=== PATIENT | male | born 1965 | race Caucasian/White ===

== ENCOUNTER 2018-10-23 06:12 | Inpatient (IN) | payer OTHER ==
[~2018-10-23] VITALS: Ht 167.6 cm; Wt 102.6 kg
[2018-10-23] MEDS ORDERED: SODIUM CHLORIDE FLUSH 10ML SYR IVF ONE (06:30)
[2018-10-23] MEDS ORDERED: LABETALOL 5MG/ML, 20ML IVPush PRN (06:30)
[2018-10-23] MEDS ORDERED: OMEP-110 PO (06:46)
--- NOTE | 2018-10-23 06:51 | NUR ---
patient back from CT scan. awaiting result.
--- NOTE | 2018-10-23 06:51 | NUR ---
assessment made. seen by ERP. IV placed. blood drawn.
--- NOTE | 2018-10-23 06:52 | NUR ---
report to THELMA Benítez.
[2018-10-23] MEDS ORDERED: MORPHINE SULFATE 4 MG/ML, 1ML ONE ×3 (06:56→15:04)
[2018-10-23] MEDS ORDERED: ONDANSETRON 2MG/ML, 2ML ONE ×2 (06:56→15:04)
[2018-10-23] MEDS ORDERED: ONDANSETRON 2MG/ML, 2ML IVPush ONE (07:00)
[2018-10-23] MEDS ORDERED: SODIUM CHLORIDE 0.9% 1,000ML IVBOLUS ONE (07:00)
--- NOTE | 2018-10-23 07:06 | NUR ---
REPORT FROM THELMA BRADFORD. PT MOVED TO TRAUMA 4 FOR CLOSE OBSERVATION. PT ON CP MONITORS. A&OX4, NO NERURO DEFECITS OBSERVED AT THIS TIME. RESTING ON GURNEY. SIDERAILS UP X 2. CALL LIGHT IN REACH.
[2018-10-23] MEDS: MORPHINE SULFATE 4 MG/ML, 1ML IVPush PRN ×2 (07:08→11:26)
--- NOTE | 2018-10-23 07:08 | NUR ---
SBAR HAND-OFF REPORT RECEIVED FROM THELMA BRADFORD PATIENT WAS ARRIVING BACK TO HIS ROOM, RM 2, FROM CT SCAN. PHARMACY REQUEST SLIP SENT TO PHARMACY FOR LABETALOL. PATIENT WAS MOVED TO TRAUMA 4 WHILE THIS RN WAS REMOVING OTHER MEDS FROM OMNICELL MACHINE. PATIENT MEDICATED WITH ZOFRAN, MORPHINE AND LABETALOL. CARE OF PATIENT HANDED-OFF TO THELMA BLACKWOOD IN TRAUMA 4.
[2018-10-23 07:13] LABS: BASOPHILS # (AUTO) 0.01 x10^3/uL (0-0.1); BASOPHILS % (AUTO) 0 % (0-1); EOSINOPHILS # (AUTO) 0.03 x10^3/uL (0-0.4); EOSINOPHILS % (AUTO) 0 % (1-7); LYMPHOCYTES # (AUTO) 0.99 x10^3/uL (1-3.4); LYMPHOCYTES % (AUTO) 11 % (22-44); MD NO; MEAN CORPUSCULAR HEMOGLOBIN 34.4 pg (27.5-34.5); MEAN CORPUSCULAR VOLUME 101.2 fL (81-97); MEAN PLATELET VOLUME 8.7 fL (7.4-10.4); MONOCYTES # (AUTO) 0.45 x10^3/uL (0.2-0.8); MONOCYTES % (AUTO) 5 % (2-9); NEUTROPHILS # (AUTO) 7.51 x10^3/uL (1.8-6.8); NEUTROPHILS % (AUTO) 84 % (42-75); PLATELET COUNT 137 x10^3/uL (130-400); RED BLOOD COUNT 5.14 x10^6/uL (4.38-5.82); RED CELL DISTRIBUTION WIDTH 15.8 % (9.4-14.8)
--- NOTE | 2018-10-23 07:14 | NUR ---
DR GUTIERREZ TO BEDSIDE TO UPDATE PT ON POC.
[2018-10-23] MEDS ORDERED: LABETALOL 5MG/ML, 20ML IVPush ONE (07:20)
[2018-10-23 07:27] LABS: ALBUMIN 3.3 g/dL (3.4-5.0); ANION GAP 9 mmol/L (5-15); CALCIUM 8.8 mg/dL (8.5-10.1); CHLORIDE 98 mmol/L (98-107)
[2018-10-23 07:31] LABS: ALANINE AMINOTRANSFERASE 47 U/L (12-78); ALKALINE PHOSPHATASE 218 U/L (45-117); CREATININE 1.01 mg/dL (0.7-1.3); TOTAL PROTEIN 9.2 g/dL (6.4-8.2); TROPONIN I < 0.015 ng/mL (0.000-0.045)
--- NOTE | 2018-10-23 07:36 | NUR ---
DISCUSSED WITH DR GUTIERREZ PTS BP AND ORDER FOR NICARDAPINE GTT WHICH CANNOT BE GIVEN DURING MRI. 2ND ORDER FOR LABETOLOL RECIEVED AND GIVEN. PT TO MRI.
[2018-10-23] MEDS ORDERED: LORazepam 2 MG/ML, 1ML IVPush ONE ×2 (08:00)
--- NOTE | 2018-10-23 09:05 | NUR ---
PT BACK FROM MRI. PT DID NOT TOLERATE TOTAL MRI SCAN R/T FREQEUNT MVMT. NICARDIPINE GTT STARTED AT MRI ON DILAFLO PTS BP REMAINED IN 180'S SYSTOLIC. PT NOW 148/89, NICARDIPINE SWITCHED TO IV PUMP. PT OTHERWISE STABLE, NO NEURO DEFICITS NOTED AT THIS TIME.
--- NOTE | 2018-10-23 09:13 | NUR ---
PER MD GUTIERREZ, TARGET SYSTOLIC BP < 160
--- NOTE | 2018-10-23 09:46 | NUR ---
NICARDIPINE GTT HELD AT THIS TIME. SEE EMAR.
[2018-10-23] MEDS ORDERED: NS + 40MEQ KCL 1,000 ML IV ONE ×2 (10:00→10:59)
[2018-10-23] MEDS ORDERED: LEVETIRACETAM 500 MG in SODIUM CHLORIDE 0.9% 100 ML IV ONE (10:30)
--- NOTE | 2018-10-23 10:33 | NUR ---
PT RESTING ON FAMILY DORIS AT BEDSIDE. VSS AND BP AT GOAL, WILL CONTINUE TO HOLD NICARDIPIE GTT AND MONITOR CLOSELY. NO NEURO DEFECITS NOTED AT THIS TIME.
--- NOTE | 2018-10-23 13:01 | NUR ---
PT RESTING COMFORTABLY COMFORTABLY. NEURO INTACT. ALL CONCERNS ADRESSED.
--- NOTE | 2018-10-23 13:13 | NUR ---
PT HR INTERMITTENTLY RU DOWN TO 40, NOT SUSTAINED AND PT NON SYMPTOMATIC. DR GUTIERREZ AWARE.
[2018-10-23] MEDS ORDERED: DOCUSATE 100 MG CAPSULE PO PRN (14:00)
[2018-10-23] MEDS ORDERED: morphine SULFATE 10 MG/ML, 1ML IVPush PRN (14:00)
[2018-10-23] MEDS ORDERED: ONDANSETRON 4 MG TABLET PO PRN (14:00)
[2018-10-23] MEDS ORDERED: LORazepam 1MG TABLET PO PRN ×3 (14:00)
[2018-10-23] MEDS ORDERED: LORazepam 2 MG/ML, 1ML IV PRN ×4 (14:00)
[2018-10-23] MEDS ORDERED: ACETAMINOPHEN 325 MG TABLET PO PRN (14:00)
[2018-10-23] MEDS ORDERED: POLYETHYLENE GLYCOL 17 GM PACKET PO PRN (14:00)
[2018-10-23] MEDS ORDERED: LABETALOL 5 MG/ML SYRINGE IV PRN (14:00)
[2018-10-23] MEDS ORDERED: INSTRUCTION SEE COMMENTS XX ONE (14:00)
[2018-10-23] MEDS ORDERED: BISACODYL 10 MG SUPP PR PRN (14:00)
--- NOTE | 2018-10-23 14:02 | NUR ---
PER DR GARCIA, DISCONTINUE NICARDIPINE ORDER.
[2018-10-23] MEDS ORDERED: MAGNESIUM SULFATE PMX 2GM/50ML 50 ML IV ONE (14:30)
--- NOTE | 2018-10-23 14:40 | NUR ---
US AT BEDSIDE.
[2018-10-23] MEDS ORDERED: THIAMINE 100MG TABLET ONE (14:51)
[2018-10-23] MEDS ORDERED: MAGNESIUM SULFATE PMX 2GM/50ML 50 ML ONE (14:51)
[2018-10-23] MEDS ORDERED: LISINOPRIL 10 MG TABLET ONE (14:51)
[2018-10-23] MEDS: LISINOPRIL 10 MG TABLET PO SCH ×2 (14:57→21:09)
[2018-10-23] MEDS: ONDANSETRON 2MG/ML, 2ML IVPush PRN (15:08)
--- NOTE | 2018-10-23 15:15 | NUR ---
NEURO REMAINS INTACT AT THSI TIME.
[2018-10-23] MEDS ORDERED: ENALAPRILAT 1.25 MG/ML, 1ML ONE (15:37)
--- NOTE | 2018-10-23 15:38 | NUR ---
All neuro intact. AAOx4.
[2018-10-23] MEDS: ENALAPRILAT 1.25 MG/ML, 2ML IV PRN (15:42)
--- NOTE | 2018-10-23 15:48 | NUR ---
MEDICAL DETAILIST Jp Navarrete (patient's brother) telephone number
[2018-10-23] MEDS ORDERED: CHLORDIAZEPOXIDE 25 MG CAPSULE PO SCH (16:00)
--- NOTE | 2018-10-23 16:53 | NUR ---
REPORT TO JANES RENEE.
[2018-10-23] MEDS ORDERED: THIAMINE 200 MG in DEXTROSE 5% 50 ML IVPB ONE (17:30)
[2018-10-23 17:49] VITALS: BP 150/83
[2018-10-23] MEDS ORDERED: THIAMINE 100MG TABLET PO ONE (18:00)
[2018-10-23] MEDS ORDERED: CHLORDIAZEPOXIDE 25 MG CAPSULE PO ONE (18:30)
[2018-10-23] MEDS: MVI ADULT 10 ML, FOLIC ACID 1 MG in D5%-0.9% NACL 1,000 ML IV SCH (20:23)
[2018-10-23] MEDS: CHLORDIAZEPOXIDE 25 MG CAPSULE PO SCH (21:08)
[2018-10-23] MEDS: ATORVASTATIN 40 MG TABLET PO SCH (21:08)
[2018-10-23] MEDS: OXYcodone IR 5MG TABLET PO PRN (21:09)
[2018-10-23] MEDS: LEVETIRACETAM 500 MG in SODIUM CHLORIDE 0.9% 100 ML IV SCH (23:08)
[2018-10-24 04:00] VITALS: BP 149/95
[2018-10-24 04:18] LABS: BASOPHILS # (AUTO) 0.03 x10^3/uL (0-0.1); BASOPHILS % (AUTO) 0 % (0-1); EOSINOPHILS # (AUTO) 0.01 x10^3/uL (0-0.4); EOSINOPHILS % (AUTO) 0 % (1-7); LYMPHOCYTES # (AUTO) 0.83 x10^3/uL (1-3.4); LYMPHOCYTES % (AUTO) 7 % (22-44); MD NO; MEAN CORPUSCULAR HEMOGLOBIN 33.6 pg (27.5-34.5); MEAN CORPUSCULAR HGB CONC 32.4 g/dL (33.2-36.2); MEAN CORPUSCULAR VOLUME 103.6 fL (81-97); MEAN PLATELET VOLUME 8.7 fL (7.4-10.4); MONOCYTES # (AUTO) 0.84 x10^3/uL (0.2-0.8); MONOCYTES % (AUTO) 7 % (2-9); NEUTROPHILS # (AUTO) 10.34 x10^3/uL (1.8-6.8); NEUTROPHILS % (AUTO) 86 % (42-75); PLATELET COUNT 149 x10^3/uL (130-400); RED BLOOD COUNT 4.78 x10^6/uL (4.38-5.82); RED CELL DISTRIBUTION WIDTH 16.1 % (9.4-14.8)
[2018-10-24 04:31] LABS: ALBUMIN 2.7 g/dL (3.4-5.0); ANION GAP 6 mmol/L (5-15); CHLORIDE 99 mmol/L (98-107)
[2018-10-24 04:57] LABS: ALANINE AMINOTRANSFERASE 38 U/L (12-78); ALKALINE PHOSPHATASE 165 U/L (45-117); BILIRUBIN,TOTAL 2.4 mg/dL (0.2-1.0); CHOL/HDL RATIO 3.5; CHOLESTEROL, TOTAL 146 mg/dL (140-239); CREATININE 0.84 mg/dL (0.7-1.3); HDL CHOL % 29 % (26-37); HDL CHOLESTEROL (DIRECT) 42 mg/dL (40-60); LDL CHOLESTEROL,CALCULATED 88 mg/dL (54-169); LDL/HDL RATIO 2.1 (0.5-3.0); THYROID STIMULATING HORMONE 0.596 mIU/L (0.358-3.740); TRIGLYCERIDES 81 mg/dL (50-200); VLDL CHOLESTEROL 16 mg/dL (0-25)
[2018-10-24] MEDS: LORazepam 2 MG/ML, 1ML IV PRN (06:28)
[2018-10-24] MEDS: CHLORDIAZEPOXIDE 25 MG CAPSULE PO SCH ×3 (10:07→20:21)
[2018-10-24] MEDS: LISINOPRIL 10 MG TABLET PO SCH ×2 (10:07→20:21)
[2018-10-24] MEDS: OXYcodone IR 5MG TABLET PO PRN ×2 (10:52→17:24)
[2018-10-24 11:12] VITALS: BP 188/110
[2018-10-24] MEDS: LORazepam 1MG TABLET PO PRN (11:27)
[2018-10-24] MEDS: LEVETIRACETAM 500 MG in SODIUM CHLORIDE 0.9% 100 ML IV SCH (13:07)
[2018-10-24 14:19] VITALS: BP 172/82
[2018-10-24 20:13] VITALS: BP 165/106
[2018-10-24] MEDS: ATORVASTATIN 40 MG TABLET PO SCH (20:21)
[2018-10-24 21:34] VITALS: BP 176/98
[2018-10-24] MEDS: MVI ADULT 10 ML, FOLIC ACID 1 MG in D5%-0.9% NACL 1,000 ML IV SCH (21:34)
[2018-10-24] MEDS: ENALAPRILAT 1.25 MG/ML, 2ML IV PRN (22:33)
[2018-10-24 23:23] VITALS: BP 165/92
[2018-10-25] VITALS (8 sets, daily range): BP systolic 149–220; BP diastolic 88–117
[2018-10-25] MEDS: LEVETIRACETAM 500 MG in SODIUM CHLORIDE 0.9% 100 ML IV SCH ×2 (01:10→13:28)
[2018-10-25] MEDS: LORazepam 2 MG/ML, 1ML IV PRN ×2 (07:23→12:12)
[2018-10-25] MEDS: THIAMINE 100MG TABLET PO SCH (08:53)
[2018-10-25] MEDS: LISINOPRIL 10 MG TABLET PO SCH ×2 (08:53→20:27)
[2018-10-25] MEDS: CHLORDIAZEPOXIDE 25 MG CAPSULE PO SCH (08:53)
[2018-10-25] MEDS ORDERED: THIAMINE 100 MG in DEXTROSE 5% 50 ML IVPB SCH (09:00)
[2018-10-25] MEDS: AMLODIPINE 2.5 MG TABLET PO SCH (09:36)
[2018-10-25] MEDS ORDERED: OXYcodone IR 5MG TABLET PO PRN (10:00)
[2018-10-25 10:23] LABS: MEAN CORPUSCULAR HEMOGLOBIN 33.9 pg (27.5-34.5); MEAN CORPUSCULAR HGB CONC 33.2 g/dL (33.2-36.2); MEAN CORPUSCULAR VOLUME 102.1 fL (81-97); MEAN PLATELET VOLUME 8.9 fL (7.4-10.4); PLATELET COUNT 114 x10^3/uL (130-400); RED BLOOD COUNT 4.78 x10^6/uL (4.38-5.82); RED CELL DISTRIBUTION WIDTH 15.6 % (9.4-14.8)
[2018-10-25 10:24] LABS: ALANINE AMINOTRANSFERASE 43 U/L (12-78); ALBUMIN 2.8 g/dL (3.4-5.0); ANION GAP 6 mmol/L (5-15); CALCIUM 8.3 mg/dL (8.5-10.1); CHLORIDE 98 mmol/L (98-107); CREATININE 0.88 mg/dL (0.7-1.3)
[2018-10-25 10:27] LABS: ALKALINE PHOSPHATASE 189 U/L (45-117); BILIRUBIN,TOTAL 3.9 mg/dL (0.2-1.0); TOTAL PROTEIN 8.1 g/dL (6.4-8.2)
[2018-10-25 10:39] LABS: BASOPHILS # (AUTO) 0.02 x10^3/uL (0-0.1); BASOPHILS % (AUTO) 0 % (0-1); EOSINOPHILS # (AUTO) 0.01 x10^3/uL (0-0.4); EOSINOPHILS % (AUTO) 0 % (1-7); LYMPHOCYTES # (AUTO) 0.86 x10^3/uL (1-3.4); LYMPHOCYTES % (AUTO) 7 % (22-44); MD SCAN; MONOCYTES # (AUTO) 0.99 x10^3/uL (0.2-0.8); MONOCYTES % (AUTO) 8 % (2-9); NEUTROPHILS # (AUTO) 11.14 x10^3/uL (1.8-6.8); NEUTROPHILS % (AUTO) 86 % (42-75)
[2018-10-25] MEDS: LORazepam 0.5MG TABLET PO PRN (10:39)
[2018-10-25] MEDS ORDERED: morphine SULFATE 10 MG/ML, 1ML IVPush PRN (11:00)
[2018-10-25] MEDS: ENALAPRILAT 1.25 MG/ML, 2ML IV PRN (11:01)
[2018-10-25] MEDS: ISOSORBIDE DINITRATE 10 MG TABLET PO SCH ×2 (14:42→20:27)
[2018-10-25] MEDS ORDERED: POTASSIUM CHLORIDE 20 MEQ TAB.ER.PRT PO ONE (15:30)
[2018-10-25] MEDS: ATORVASTATIN 40 MG TABLET PO SCH (20:27)
[2018-10-25] MEDS: LEVETIRACETAM 500 MG TABLET PO SCH (20:27)
[2018-10-25] MEDS: ONDANSETRON 2MG/ML, 2ML IVPush PRN (20:54)
[2018-10-25] MEDS: MVI ADULT 10 ML, FOLIC ACID 1 MG in D5%-0.9% NACL 1,000 ML IV SCH (22:16)
[2018-10-26 00:40] VITALS: BP 120/71
[2018-10-26] MEDS: LORazepam 0.5MG TABLET PO PRN (00:52)
[2018-10-26 06:41] VITALS: BP 169/102
[2018-10-26] MEDS: AMLODIPINE 2.5 MG TABLET PO SCH (07:44)
[2018-10-26] MEDS: THIAMINE 100MG TABLET PO SCH (07:44)
[2018-10-26] MEDS: LEVETIRACETAM 500 MG TABLET PO SCH ×2 (07:44→21:06)
[2018-10-26] MEDS: LISINOPRIL 10 MG TABLET PO SCH ×2 (07:44→21:07)
[2018-10-26] MEDS: ISOSORBIDE DINITRATE 10 MG TABLET PO SCH ×3 (07:45→21:07)
[2018-10-26] MEDS ORDERED: OXYcodone IR 5MG TABLET PO PRN (10:00)
[2018-10-26] MEDS ORDERED: OMNIPAQUE 350 MG/ML, 100ML BOTTLE ONE (11:40)
[2018-10-26 12:17] VITALS: BP 159/91
[2018-10-26] MEDS: ACETAMINOPHEN 325 MG TABLET PO PRN ×2 (13:04→21:06)
[2018-10-26 19:02] VITALS: BP 156/92
[2018-10-26] MEDS: ATORVASTATIN 40 MG TABLET PO SCH (21:06)
[2018-10-26] MEDS: LORazepam 1MG TABLET PO PRN (21:25)
[2018-10-27] VITALS (7 sets, daily range): BP systolic 148–185; BP diastolic 85–133
[2018-10-27 06:05] LABS: BASOPHILS # (AUTO) 0.07 x10^3/uL (0-0.1); BASOPHILS % (AUTO) 1 % (0-1); EOSINOPHILS # (AUTO) 0.27 x10^3/uL (0-0.4); EOSINOPHILS % (AUTO) 4 % (1-7); LYMPHOCYTES % (AUTO) 15 % (22-44); MD NO; MEAN CORPUSCULAR HEMOGLOBIN 34.5 pg (27.5-34.5); MEAN CORPUSCULAR HGB CONC 33.2 g/dL (33.2-36.2); MEAN CORPUSCULAR VOLUME 103.9 fL (81-97); MEAN PLATELET VOLUME 8.9 fL (7.4-10.4); MONOCYTES # (AUTO) 0.59 x10^3/uL (0.2-0.8); MONOCYTES % (AUTO) 8 % (2-9); NEUTROPHILS # (AUTO) 5.07 x10^3/uL (1.8-6.8); NEUTROPHILS % (AUTO) 72 % (42-75); PLATELET COUNT 122 x10^3/uL (130-400); RED BLOOD COUNT 4.78 x10^6/uL (4.38-5.82)
[2018-10-27] MEDS: THIAMINE 100MG TABLET PO SCH (08:04)
[2018-10-27] MEDS: LISINOPRIL 10 MG TABLET PO SCH ×2 (08:04→19:57)
[2018-10-27] MEDS: AMLODIPINE 2.5 MG TABLET PO SCH (08:04)
[2018-10-27] MEDS: ISOSORBIDE DINITRATE 10 MG TABLET PO SCH ×3 (08:05→19:58)
[2018-10-27] MEDS: ACETAMINOPHEN 325 MG TABLET PO PRN ×2 (11:42→21:06)
[2018-10-27] MEDS: ATORVASTATIN 40 MG TABLET PO SCH (19:58)
[2018-10-27] MEDS: ONDANSETRON 2MG/ML, 2ML IVPush PRN (21:06)
[2018-10-28 03:59] VITALS: BP 154/95
[2018-10-28] MEDS: ISOSORBIDE DINITRATE 10 MG TABLET PO SCH (07:11)
[2018-10-28] MEDS: THIAMINE 100MG TABLET PO SCH (07:12)
[2018-10-28] MEDS: LISINOPRIL 10 MG TABLET PO SCH (07:12)
[2018-10-28] MEDS: AMLODIPINE 2.5 MG TABLET PO SCH (07:12)
[2018-10-28 07:21] VITALS: BP 176/109
[2018-10-28 08:02] VITALS: BP 141/86
[2018-10-28] MEDS ORDERED: HYDR-3341 PO (10:07)
[2018-10-28] MEDS ORDERED: LISI-167 PO (10:07)
[2018-10-28] MEDS ORDERED: ATOR40TA78 PO (10:07)
[2018-10-28] MEDS ORDERED: ISOS10TA2 PO (10:07)
[2018-10-28] MEDS ORDERED: AMLO2.5T5 PO (10:07)
== END 2018-10-28 15:20 | disposition home or self-care (01) | DRG 65 ==
LOC: ED 07:44 → EDIP 11:52 → CCU 17:11 → 4WST 10-24 10:34 → 4EST 10-24 15:08 → DCLOUNGE 10-28 15:00
PROVIDERS: ADMIT Internal Medicine; ATTEND Internal Medicine
DX: I61.5 Nontraumatic intracerebral hemorrhage, intraventricular (principal); E87.1 Hypo-osmolality and hyponatremia; F10.231 Alcohol dependence with withdrawal delirium; I16.1 Hypertensive emergency; D69.6 Thrombocytopenia, unspecified; D72.829 Elevated white blood cell count, unspecified; D75.89 Other specified diseases of blood and blood-forming organs; E66.9 Obesity, unspecified; E83.42 Hypomagnesemia; E87.5 Hyperkalemia; E87.6 Hypokalemia; F12.20 Cannabis dependence, uncomplicated; F17.220 Nicotine dependence, chewing tobacco, uncomplicated; I10 Essential (primary) hypertension; G47.00 Insomnia, unspecified; K70.10 Alcoholic hepatitis without ascites; Z82.49 Family history of ischemic heart disease and other diseases of the circulatory system; Z87.09 Personal history of other diseases of the respiratory system; Z91.14 Patient's other noncompliance with medication regimen; Z71.6 Tobacco abuse counseling; Z68.36 Body mass index [BMI] 36.0-36.9, adult
CPT/HCPCS: 36415; 99291; J7042; 70450; 70496; 70551; 71045; 76700; 80053; 80061; 82607; 83735; 84100; 84443; 84484; 85025; 87081; 93005; 93306; 93880; 96365; 96375; 96376; G0378; J1953; J2405; Q9967; J2060; J2270; J3475; J3480; J7050

== ENCOUNTER 2018-11-17 09:20 | Emergency (ER) | payer OTHER ==
[~2018-11-17] VITALS: Ht 167.6 cm; Wt 100.0 kg
[~2018-11-17 09:20] MED LIST: AMLO2.5T5 PO; ATOR40TA78 PO; HYDR-3341 PO; ISOS10TA2 PO; LISI-167 PO; OMEP-110 PO
[2018-11-17] MEDS ORDERED: ACETAMINOPHEN 500 MG TABLET ONE (09:57)
[2018-11-17] MEDS ORDERED: SODIUM CHLORIDE FLUSH 10ML SYR IVF ONE (10:00)
[2018-11-17] MEDS ORDERED: ACETAMINOPHEN 500 MG TABLET PO ONE (10:00)
[2018-11-17 10:22] LABS: BASOPHILS # (AUTO) 0.02 x10^3/uL (0-0.1); BASOPHILS % (AUTO) 0 % (0-1); EOSINOPHILS # (AUTO) 0.23 x10^3/uL (0-0.4); EOSINOPHILS % (AUTO) 3 % (1-7); LYMPHOCYTES % (AUTO) 9 % (22-44); MD NO; MEAN CORPUSCULAR HEMOGLOBIN 33.8 pg (27.5-34.5); MEAN CORPUSCULAR HGB CONC 33.4 g/dL (33.2-36.2); MEAN CORPUSCULAR VOLUME 101.2 fL (81-97); MEAN PLATELET VOLUME 8.6 fL (7.4-10.4); MONOCYTES # (AUTO) 0.53 x10^3/uL (0.2-0.8); MONOCYTES % (AUTO) 7 % (2-9); NEUTROPHILS # (AUTO) 6.51 x10^3/uL (1.8-6.8); NEUTROPHILS % (AUTO) 81 % (42-75); PLATELET COUNT 124 x10^3/uL (130-400); RED BLOOD COUNT 4.85 x10^6/uL (4.38-5.82); RED CELL DISTRIBUTION WIDTH 15.2 % (9.4-14.8)
[2018-11-17 10:29] LABS: ALBUMIN 3.3 g/dL (3.4-5.0); ANION GAP 11 mmol/L (5-15); CALCIUM 9.2 mg/dL (8.5-10.1); CHLORIDE 103 mmol/L (98-107)
--- NOTE | 2018-11-17 10:31 | NUR ---
PT TO CT
[2018-11-17 10:33] LABS: ALANINE AMINOTRANSFERASE 33 U/L (12-78); ALKALINE PHOSPHATASE 195 U/L (45-117); BILIRUBIN,TOTAL 2.6 mg/dL (0.2-1.0); CREATININE 1.06 mg/dL (0.7-1.3); TOTAL PROTEIN 8.7 g/dL (6.4-8.2)
[2018-11-17 11:06] LABS: MICROSCOPIC NOT IND
[2018-11-17 11:08] LABS: CULTURE INDICATED? NO
--- NOTE | 2018-11-17 11:32 | NUR ---
PT RESTING IN [facility], ON MONITOR, WITH BROTHER AT BEDSIDE. CALL LIGHT WTIHIN REACH, AWAITING LAB RESULTS
[2018-11-17] MEDS ORDERED: LIDOCAINE-MPF 1%, 5ML ONE (12:01)
--- NOTE | 2018-11-17 12:16 | NUR ---
PA AT BEDSIDE FOR LP
[2018-11-17 12:35] VITALS: BP 142/93
[2018-11-17 12:52] LABS: GLUCOSE, CSF 48 mg/dL (40-80); TOTAL PROTEIN,CSF 51 mg/dL (15-45)
--- NOTE | 2018-11-17 13:13 | NUR ---
PT RESTING IN [facility] WITH BROTHER AT BEDSIDE, AWAITING CSF RESULTS. CALL LIGHT WITHIN REACH
--- NOTE | 2018-11-17 14:00 | NUR ---
RECEIVED REPORT FROM TONY. PT LAYING ON GURNEY AWAKE & COMFORTABLE, RESPONDS APPROP TO STAFF, NAD, COMFORT MEASURES PROVIDED, FAMILY AT BS, CALL LIGHT WITHIN REACH.
--- NOTE | 2018-11-17 15:12 | NUR ---
Patient given discharge instructions, refused written Rx for pain and they have confirmed that they understand the instructions. Patient ambulatory with steady gait.
== END 2018-11-17 15:12 | disposition home or self-care (01) ==
LOC: ED 11:27
DX: G03.0 Nonpyogenic meningitis (principal); M54.2 Cervicalgia; R51 Headache; R11.0 Nausea; I10 Essential (primary) hypertension; Z86.73 Personal history of transient ischemic attack (TIA), and cerebral infarction without residual deficits
CPT/HCPCS: 36415; 62270; 70450; 71045; 80053; 81003; 82945; 83605; 84157; 85025; 87040; 87070; 87205; 87252; 89051; 93005; 99284

== ENCOUNTER 2018-11-30 09:21 | Outpatient (CLI) | payer OTHER | END 2018-11-30 23:59 | disposition home or self-care (01) | LOC: RAD 09:21 | PROVIDERS: ATTEND Family Medicine | DX: I67.82 Cerebral ischemia (principal); I65.1 Occlusion and stenosis of basilar artery | CPT/HCPCS: 70553; A9585 ==